=== PATIENT | female | born 1960 ===

== ENCOUNTER 2017-02-13 19:00 | Emergency (ER) | payer BC ==
[2017-02-13 19:09] VITALS: BP 186/91; PULSE 74; RESP 19; TEMP 98; O2SAT 100
[2017-02-13] MEDS ORDERED: Promethazine/Cod 6.25mg-10mg/5ml Syr UD PO STA (19:36)
[2017-02-13] MEDS ORDERED: Albuterol 0.083% Inhal Sol (2.5 mg/3 mL) UD INH STA (19:36)
--- NOTE | 2017-02-13 19:51 | ED PDOC ---
HPI: CCC, URI, Sore Throat Time Seen by Provider: 02/13/17 19:16 Chief Complaint (Nursing): Cough, Cold, Congestion Chief Complaint (Provider): Cough History Per: Patient History/Exam Limitations: no limitations Onset/Duration Of Symptoms: Days Current Symptoms Are (Timing): Still Present Additional Complaint(s): 57 year old female with a past medical history of hypertension who presents to the emergency department with a complaint a productive cough, congestion, chest tightness, feeling tired, and an upper sided back pain for a couple of days. Associated with shortness of breath only when she goes outside but does not have dyspnea at breath. Denies vomiting, diarrhea, body aches, chills, or fever. Of note, patient was seen at [facility] on 01/28/2017, diagnosed with pneumonia, and prescribed Levaquin 750 mg (antibiotics). Patient was discharged home and followed up with primary care doctor 2 days later on and prescribed a cough medication and nasal spray. Patient decided to visit our facility today, 02/13/2017, because she started to experience similar symptoms. Patient states she felt a lot better after finishing antibiotic trial. Chest x-ray and chest CT was completed at [facility] [place] which showed patient had pneumonia. Past Medical History Reviewed: Historical Data, Nursing Documentation, Vital Signs Vital Signs: Last Vital Signs Temp 98 F 02/13/17 19:03 Pulse 74 02/13/17 19:03 Resp 19 02/13/17 19:03 BP 186/91 H 02/13/17 19:03 Pulse Ox 100 02/13/17 21:10 - Medical History PMH: Back Problems (disc), HTN - Surgical History Other surgeries: hysterectomy - Family History Family History: States: Unknown Family Hx - Living Arrangements Living Arrangements: With Family () - Social History Current smoker - smoking cessation education provided: No Alcohol: None Drugs: Denies - Immunization History Hx Tetanus Toxoid Vaccination: No Hx Influenza Vaccination: No Hx Pneumococcal Vaccination: No - Home Medications Home Medications: Ambulatory Orders Medication Instructions Recorded Benicar 40 mg DAILY 02/04/14 Olmesartan/Hydrochlorothiazide 1 tab PO DAILY #30 tab 02/04/14 [Benicar Hct 25 mg-40 mg] Naproxen [Naprosyn] 375 mg PO TIDPC #20 tab 04/22/14 Aluminum Hydroxide/Magnesium H 20 ml PO Q4 #240 udc 08/09/14 [Maalox 30 ml] Ciprofloxacin HCl [Cipro] 500 mg PO BID #20 tab 01/03/15 Albuterol HFA [Ventolin HFA 90 2 puff IH [id number] #1 inh 02/13/17 mcg/actuation (8 g)] Azithromycin [Z-Jeremías] 250 mg PO ASDIR #6 tab 02/13/17 Promethazine/Codeine 5 ml PO Q6 PRN #100 ml 02/13/17 [Phenergan/Codeine Oral Syrup] - Allergies Allergies/Adverse Reactions: Allergies Allergy/AdvReac Type Severity Reaction Status Date / Time Penicillins Allergy RASH Verified 02/13/17 19:10 shrimp Allergy RASH Verified 02/13/17 19:10 Sulfa (Sulfonamide Allergy RASH Verified 02/13/17 19:10 Antibiotics) Review of Systems ROS Statement: Except As Marked, All Systems Reviewed And Found Negative (As per HPI, otherwise negative) Constitutional: Positive for: Other (Tired). Negative for: Fever (Body aches), Chills ENT: Positive for: Nose Congestion Cardiovascular: Positive for: Other (Chest tightness). Negative for: Chest Pain Respiratory: Positive for: Cough (productive), Shortness of Breath (only when she goes outside). Negative for: Other (no dyspnea at breath ) Gastrointestinal: Negative for: Vomiting, Diarrhea Musculoskeletal: Positive for: Back Pain (Left upper back pain) Physical Exam - Reviewed Nursing Documentation Reviewed: Yes Vital Signs Reviewed: Yes - Physical Exam Appears: Positive for: Non-toxic, No Acute Distress Head Exam: Positive for: ATRAUMATIC, NORMAL INSPECTION, NORMOCEPHALIC Skin: Positive for: Normal Color, Warm, Dry ENT: Positive for: Other (Mild erythema to the tonsils bilaterally). Negative for: Normal ENT Inspection, Tonsillar Exudate Cardiovascular/Chest: Positive for: Regular Rate, Rhythm. Negative for: Murmur Respiratory: Positive for: Normal Breath Sounds. Negative for: Accessory Muscle Use, Respiratory Distress Gastrointestinal/Abdominal: Positive for: Normal Exam, Soft. Negative for: Tenderness Neurologic/Psych: Positive for: Alert, Oriented (x3) - ECG O2 Sat by Pulse Oximetry: 100 (RA) Pulse Ox Interpretation: Normal - Progress Re-evaluation Time: 21:08 Condition: Re-examined, Improved Medical Decision Making Medical Decision Making: Time: 1934 Initial Impression: Acute bronchitis and upper respiratory infection (URI) differential include pneumonia and influenza Initial Plan: --EKG --Chest x-ray --Peak Flow Pre/Post TX --Albuterol 0.083% 2.5 mg INH --Influenza A B --Promethazine/Codeine 5 ml PO --Reevaluation EKG: Normal sinus rhythm at 74 bpm. Normal QRS. No ST changes. Time: 1948 --Negative for influenza A/B Time: 2107 Upon provider reevaluation patient is feeling better, is medically stable, and requires no further treatment in the ED at this time. Patient will be discharged home with Rx for Ventolin HFA 90 mcg, Z-jeremías 250 mg, and Phenergan/ Codeine Oral Syrup. Counseling was provided and all questions were answered regarding diagnosis and need for follow up with referred clinics. There is agreement to discharge plan. Return if symptoms persist or worsen. Clinical Impression: Bronchitis and pulmonary nodule Scribe~Attestation: Documented by Renetta Kapoor, acting as a scribe for Ibeth Lu MD. Provider Scribe~Attestation: All medical record entries made by the Scribe were at my direction and personally dictated by me. I have reviewed the chart and agree that the record accurately reflects my personal performance of the history, physical exam, medical decision making, and the department course for this patient. I have also personally directed, reviewed, and agree with the discharge instructions and disposition. Disposition - Clinical Impression Clinical Impression: Bronchitis, Pulmonary nodule - Patient ED Disposition Is Patient to be Admitted: No Doctor Will See Patient In The: Office Counseled Patient/Family Regarding: Studies Performed, Diagnosis, Need For Followup - Disposition Referrals: [facility] [Outside] Disposition: Routine/Home Disposition Time: 21:08 Condition: GOOD Additional Instructions: Follow up with your PCP in 2-3 days. Prescriptions: Albuterol HFA [Ventolin HFA 90 mcg/actuation (8 g)] 2 puff IH [id number] #1 inh Azithromycin [Z-Jeremías] 250 mg PO ASDIR #6 tab Promethazine/Codeine [Phenergan/Codeine Oral Syrup] 5 ml PO Q6 PRN #100 ml PRN Reason: Cough Instructions: Acute Bronchitis (ED), Pulmonary Nodules (ED)
--- NOTE | 2017-02-14 11:27 | RAD ---
HISTORY: cough chest congestion COMPARISON: No prior. TECHNIQUE: Chest PA and lateral FINDINGS: LUNGS: Patchy opacity upper right yamileth thorax, not evident in lateral projection. No infiltrate elsewhere. PLEURA: No significant pleural effusion identified. No pneumothorax apparent. CARDIOVASCULAR: Normal. OSSEOUS STRUCTURES: No significant abnormalities. VISUALIZED UPPER ABDOMEN: Normal. OTHER FINDINGS: None. IMPRESSION: Possible infiltrate upper right yamileth thorax. Otherwise unremarkable.
--- NOTE | 2017-02-14 11:44 | CARD ---
APPROVED REPORT EKG Measurement Heart [id number] <Conclusion> Normal sinus rhythm Normal ECG
== END 2017-02-13 21:35 | disposition home or self-care (01) ==
LOC: H.ER 19:00
DX: J20.9 Acute bronchitis, unspecified (principal); J18.9 Pneumonia, unspecified organism; R91.1 Solitary pulmonary nodule; I10 Essential (primary) hypertension; Z88.0 Allergy status to penicillin; Z90.710 Acquired absence of both cervix and uterus

== ENCOUNTER 2017-07-23 15:41 | Emergency (ER) | payer BC ==
[2017-07-23] MEDS ORDERED: Albuterol-Ipratrop 3 mg / 0.5 (3 ml) UD INH STA (16:20)
--- NOTE | 2017-07-23 16:23 | ED PDOC ---
HPI: SOB/CHF/COPD Time Seen by Provider: 07/23/17 16:21 Chief Complaint (Nursing): Shortness Of Breath Chief Complaint (Provider): sob/cough/back pain History Per: Patient (57 y/o female notes back pain upper since morning now associated with cough. Denies any fevers/chills. States she took tylenol with mild relief of symptoms. Denies any fevers/chills. Denies any h/o smoking/ asthma) Past Medical History Reviewed: Historical Data, Nursing Documentation, Vital Signs Vital Signs: Last Vital Signs Temp 98.6 F 07/23/17 15:55 Pulse 66 07/23/17 15:55 Resp 19 07/23/17 16:15 BP 163/95 H 07/23/17 15:55 Pulse Ox 98 07/23/17 16:23 - Medical History PMH: Back Problems (disc), HTN - Family History Family History: States: Unknown Family Hx - Immunization History Hx Tetanus Toxoid Vaccination: No Hx Influenza Vaccination: No Hx Pneumococcal Vaccination: No - Home Medications Home Medications: Ambulatory Orders Medication Instructions Recorded Benicar 40 mg DAILY 02/04/14 Olmesartan/Hydrochlorothiazide 1 tab PO DAILY #30 tab 02/04/14 [Benicar Hct 25 mg-40 mg] Naproxen [Naprosyn] 375 mg PO TIDPC #20 tab 04/22/14 Aluminum Hydroxide/Magnesium H 20 ml PO Q4 #240 udc 08/09/14 [Maalox 30 ml] Ciprofloxacin HCl [Cipro] 500 mg PO BID #20 tab 01/03/15 Albuterol HFA [Ventolin HFA 90 2 puff IH [id number] #1 inh 02/13/17 mcg/actuation (8 g)] Azithromycin [Z-Jeremías] 250 mg PO ASDIR #6 tab 02/13/17 Promethazine/Codeine 5 ml PO Q6 PRN #100 ml 02/13/17 [Phenergan/Codeine Oral Syrup] Naproxen 375 mg PO Q8 PRN #21 tablet 07/23/17 Promethazine/Codeine 5 ml PO Q12 PRN #100 ml 07/23/17 [Codeine/Promethazine 10 MG/5 Ml-6.25 MG/5 Ml] guaiFENesin [Robitussin] 20 ml PO Q6 PRN #400 ml 07/23/17 - Allergies Allergies/Adverse Reactions: Allergies Allergy/AdvReac Type Severity Reaction Status Date / Time Penicillins Allergy RASH Verified 02/13/17 19:10 shrimp Allergy RASH Verified 02/13/17 19:10 Sulfa (Sulfonamide Allergy RASH Verified 02/13/17 19:10 Antibiotics) Wells Criteria for PE - Wells Criteria for Pulmonary Embolism Clinical Signs and Symptoms of DVT: No P.E is #1 Diagnosis, or Equally Likely: No Heart Rate >100: No Immobilization at least 3 days;Surgery previous 4 weeks: No Previous, objectively diagnosed PE or DVT: No Hemoptysis: No Malignancy w/treatment within 6 months, or palliative: No Total Score: 0 Review of Systems ROS Statement: Except As Marked, All Systems Reviewed And Found Negative Physical Exam - Reviewed Nursing Documentation Reviewed: Yes Vital Signs Reviewed: Yes - Physical Exam Appears: Positive for: Well, Non-toxic, No Acute Distress Head Exam: Positive for: ATRAUMATIC, NORMAL INSPECTION, NORMOCEPHALIC Skin: Positive for: Normal Color, Warm, DRY Eye Exam: Positive for: EOMI, Normal appearance, PERRL ENT: Positive for: Normal ENT Inspection Neck: Positive for: Normal, Painless ROM Cardiovascular/Chest: Positive for: Regular Rate, Rhythm Respiratory: Positive for: CNT, Normal Breath Sounds Gastrointestinal/Abdominal: Positive for: Normal Exam, Soft Back: Positive for: Normal Inspection, Other (tenderness left subscapular region.) Extremity: Positive for: Normal ROM Neurologic/Psych: Positive for: Alert, Oriented - Laboratory Results Result Diagrams: 07/23/17 16:35 07/23/17 18:12 - ECG ECG Rhythm: Positive for: Sinus Rhythm (nsr 66 bpm; no ectopy no acute changes) O2 Sat by Pulse Oximetry: 98 - Progress ED Course And Treament: toradol 15 mg iv x 1 dose cxr: nad duoneb x 1 dose with minimal relief. Disposition - Clinical Impression Clinical Impression: Back pain, Cough - Patient ED Disposition Is Patient to be Admitted: No - Disposition Disposition: Routine/Home Disposition Time: 18:30 Condition: FAIR Prescriptions: guaiFENesin [Robitussin] 20 ml PO Q6 PRN #400 ml PRN Reason: Cough Naproxen 375 mg PO Q8 PRN #21 tablet PRN Reason: Pain, Moderate (4-7) Promethazine/Codeine [Codeine/Promethazine 10 MG/5 Ml-6.25 MG/5 Ml] 5 ml PO Q12 PRN #100 ml PRN Reason: Cough Instructions: Cough in Adults, Upper Back Pain Forms: [facility] (Cameroonian)
[2017-07-23 17:26] LABS: BASO # 0.1 K/uL (0.0-0.2); BASO % 0.9 % (0.0-2.0); EOS # 0.2 K/uL (0.0-0.7); EOS % 3.5 % (0.0-4.0); HEMOGLOBIN 11.5 g/dL (12.0-16.0); LYMPH # 2.3 K/uL (1.0-4.3); LYMPH % 34.4 % (20.0-40.0); MEAN CELL VOLUME 80.5 fl (81.0-99.0); MEAN CORPUSCULAR HEMOGLOBIN 26.6 pg (27.0-31.0); MEAN PLATELET VOLUME 8.5 fl (7.2-11.7); MONO # 0.8 K/uL (0.0-0.8); MONO % 11.7 % (0.0-10.0); NEUT # 3.2 K/uL (1.8-7.0); NEUT % 49.5 % (50.0-75.0); NRBC % 0.1 % (0.0-0.0); RBC 4.32 Mil/uL (3.80-5.20); RED CELL DISTRIBUTION WIDTH 15.8 % (11.5-14.5); WHITE BLOOD COUNT 6.6 K/uL (4.8-10.8)
[2017-07-23 18:04] LABS: B-TYPE NATRIURETIC PEPTIDE 73.5 pg/ml (0-900)
[2017-07-23 18:21] LABS: BLOOD UREA NITROGEN 10 mg/dl (7-17); CALCIUM 9.6 mg/dL (8.4-10.2); GFR AFRICAN-AMERICAN > 60; GFR NON-AFRICAN AMERICAN > 60
--- NOTE | 2017-07-23 18:43 | RAD ---
HISTORY: COMPARISON: 02/13/2017. TECHNIQUE: Chest PA and lateral FINDINGS: LINES AND TUBES: None. LUNG AND PLEURA: The lungs are well inflated and clear. No focal consolidation. HEART AND MEDIASTINUM: The heart is not enlarged. The hilar and mediastinal contours are within normal limits. SKELETAL STRUCTURES: The bony structures are within normal limits for the patient's age. VISUALIZED UPPER ABDOMEN: Normal. OTHER FINDINGS: None. IMPRESSION: No active pulmonary disease.
[2017-07-23 19:02] VITALS: O2SAT 100
[2017-07-23 20:06] VITALS: BP 155/78; PULSE 74; RESP 16; TEMP 98.4
--- NOTE | 2017-07-24 16:22 | CARD ---
APPROVED REPORT EKG Measurement Heart [id number] <Conclusion> Normal sinus rhythm Nonspecific T wave abnormality Abnormal ECG
== END 2017-07-23 19:30 | disposition home or self-care (01) ==
LOC: H.ER 15:41
DX: R05 Cough (principal); M54.9 Dorsalgia, unspecified; I10 Essential (primary) hypertension; Z88.0 Allergy status to penicillin
CPT/HCPCS: 71046; 80048; 83880; 84484; 85025; 85378; 93005; 94640; 96374; 99283; J1885

== ENCOUNTER 2018-05-17 19:24 | Emergency (ER) | payer BC ==
[2018-05-17 19:24] VITALS: BMI 29.8
[2018-05-17 20:19] VITALS: RESP 18
[2018-05-17] MEDS ORDERED: Lidocaine 2% GEL TOP STA (20:47)
[2018-05-17] MEDS ORDERED: Lidocaine 5% Patch TD STA (20:50)
--- NOTE | 2018-05-17 20:59 | ED PDOC ---
HPI: Back Time Seen by Provider: 05/17/18 20:40 Chief Complaint (Nursing): Back Pain Chief Complaint (Provider): Right back pain History Per: Patient History/Exam Limitations: no limitations Onset/Duration Of Symptoms: Days Current Symptoms Are (Timing): Still Present Quality Of Discomfort: "Pain" Severity: Moderate Exacerbating Factor(s): Turning, Movement, Sitting Additional History Per: Patient Additional Complaint(s): 58yo female, otherwise well, comes to ER reporting right sided back pain, which now radiates to her anterior chest, right under her ribs. Patient states she initially "pulled a muscle" a couple months ago after shoveling snow, and was evaluated by her PMD who told her to take OTC Advil. She reports minimal relief with Advil and states she is concerned as the pain is worsening and radiating to the front. She states it is worse with movement, turning, sitting or attempting to stand up. She denies any chest pain, shortness of breath, weakness, numbness or other complaints. No leg swelling or calf pain. Denies recent travel, surgery or immobilization. PMD: Osmani Will Past Medical History Reviewed: Historical Data, Nursing Documentation, Vital Signs Vital Signs: Last Vital Signs Temp 98.3 F 05/17/18 20:17 Pulse 79 05/17/18 20:17 Resp 18 05/17/18 20:17 BP 183/84 H 05/17/18 20:17 Pulse Ox 99 05/17/18 20:17 - Medical History PMH: Back Problems (disc), HTN - Surgical History Surgical History: Denies: Pacemaker - Family History Family History: States: Unknown Family Hx - Immunization History Hx Tetanus Toxoid Vaccination: No Hx Influenza Vaccination: No Hx Pneumococcal Vaccination: No - Home Medications Home Medications: Ambulatory Orders Medication Instructions Recorded Argyle-3 Fatty Acids/Fish Oil [Fish 1 each PO DAILY 01/13/18 Oil 1,000 mg Softgel] Chlorthalidone [Hygroton] 12.5 mg PO MWF #30 tab 01/18/18 Erdarbi 40 mg PO DAILY 01/18/18 Albuterol Sulfate [Ventolin Hfa] 1 puff IH Q6 PRN #1 dose 05/18/18 Azithromycin 250 mg PO DAILY #6 tablet 05/18/18 Cyclobenzaprine [Cyclobenzaprine 10 mg PO TID PRN #12 tab 05/18/18 HCl] Lidocaine 5% [Lidoderm] 1 ea TD DAILY #10 patch 05/18/18 Methylprednisolone [Medrol Dose 4 mg PO DAILY #21 mg 05/18/18 Pack (21 tabs)] - Allergies Allergies/Adverse Reactions: Allergies Allergy/AdvReac Type Severity Reaction Status Date / Time Penicillins Allergy RASH Verified 05/17/18 20:17 shrimp Allergy RASH Verified 05/17/18 20:17 Sulfa (Sulfonamide Allergy RASH Verified 05/17/18 20:17 Antibiotics) Review of Systems ROS Statement: Except As Marked, All Systems Reviewed And Found Negative Cardiovascular: Negative for: Chest Pain Respiratory: Negative for: Shortness of Breath Musculoskeletal: Positive for: Back Pain (right sided, radiating to anterior chest) Neurological: Negative for: Weakness, Numbness Physical Exam - Reviewed Nursing Documentation Reviewed: Yes Vital Signs Reviewed: Yes - Physical Exam Comments: GENERAL APPEARANCE: Patient is awake, alert, oriented x 3, in no acute distress. SKIN: Warm, dry; (-) cyanosis. EYES: (-) conjunctival pallor. ENMT: Mucous membranes moist. NECK: (-) tenderness, (-) stiffness, (-) lymphadenopathy. CHEST AND RESPIRATORY: (+) tenderness to right lateral ribs to right anterior ribs (rib 8-10). (-) rales, (-) rhonchi, (-) wheezes; breath sounds equal bilaterally. HEART AND CARDIOVASCULAR: (-) irregularity; (-) murmur, (-) gallop. ABDOMEN AND GI: Soft; (-) tenderness; (-) palpable mass. BACK: (-) direct bony tenderness, (-) deformity. Straight leg raising (-) bilaterally. EXTREMITIES: (-) deformity. no leg swelling or calf tenderness, Distal pulses good bilaterally. NEURO AND PSYCH: Mental status as above. Intact sensation bilaterally; normal strength in extension of the knees, plantar and dorsiflexion of the toes. DTRs symmetric. - Laboratory Results Result Diagrams: 05/17/18 22:11 05/17/18 22:11 - ECG O2 Sat by Pulse Oximetry: 99 (RA) Pulse Ox Interpretation: Normal Medical Decision Making Medical Decision Making: Musculoskeletal pain Plan: -- XR Ribs -- Toradol 30mg IM -- Lidocaine patch -- Flexeril 10mg PO 2145 CXR as read by me shows no fracture, no pneumothorax Repeat exam with normal lung sounds, no wheeze, rales and rhonchi Due to severity and length of pain, CT Chest ordered to r/o fracture. 0017 CT Chest With IV Contrast FINDINGS: LUNGS: There is some bronchiectasis in the right upper lobe. In the vicinity of the areas of bronchiectasis, there are some small air space opacities which may represent early infiltrates or chronic airspace disease. There are a few small air space opacities in left upper lobe and left apex as well. There is mild dependent atelectasis in the bases. PLEURAL SPACES: No large consolidation, pleural effusion or pneumothorax is identified. HEART: The heart is mildly enlarged. LYMPH NODES: No lymphadenopathy is evident. BONES: No focal osseous abnormality or acute fracture. UPPER ABDOMEN: The upper abdominal solid organs are unremarkable. MISCELLANEOUS: There is tortuous thoracic aorta. IMPRESSION: 1. The heart is mildly enlarged. 2. There is some bronchiectasis in the right upper lobe. In the vicinity of the areas of bronchiectasis, there are some small air space opacities which may represent early infiltrates or chronic airspace disease. There are a few small air space opacities in left upper lobe and left apex as well. 3. There is mild dependent atelectasis in the bases. 4. No large consolidation, pleural effusion or pneumothorax is identified. 5. There is tortuous thoracic aorta. 6. No rib fractures are identified, as clinically questioned. 0020 re arben pt is feeling much better, she does report having an on and off cough, but tries not to due the pain, she also reports being worked up by her PMD for COPD and given breathing treatments but never given a diagnosis possible infiltrates notes - will treat with azithromycin discussed results, diagnosis, treatment, return precautions and f/u with pt who is understanding, in agreement and stable for dc Scribe Attestation: Documented by Ana Garcia, acting as a scribe for VENICE Luevano. Provider Scribe Attestation: All medical record entries made by the Scribe were at my direction and personally dictated by me. I have reviewed the chart and agree that the record accurately reflects my personal performance of the history, physical exam, medical decision making, and the department course for this patient. I have also personally directed, reviewed, and agree with the discharge instructions and disposition. Disposition - Clinical Impression Clinical Impression: Bronchiectasis, Strain of muscle and tendon of front wall of thorax, initial encounter - Patient ED Disposition Is Patient to be Admitted: No Counseled Patient/Family Regarding: Studies Performed, Diagnosis, Need For Followup, Rx Given - Disposition Referrals: Osmani Will MD [Medical Doctor] - Disposition: Routine/Home Disposition Time: 00:25 Condition: IMPROVED Additional Instructions: Return to ED for new or worsening symptoms, fever >100.4, chest pain, difficulty breathing, changes in skin color. Follow up with your primary doctor in 1-2 days. Take medications as prescribed. Do not drive or drink alcohol when taking flexeril Prescriptions: Albuterol Sulfate [Ventolin Hfa] 1 puff IH Q6 PRN #1 dose PRN Reason: Wheezing Azithromycin 250 mg PO DAILY #6 tablet Cyclobenzaprine [Cyclobenzaprine HCl] 10 mg PO TID PRN #12 tab PRN Reason: Muscle Spasm Lidocaine 5% [Lidoderm] 1 ea TD DAILY #10 patch Methylprednisolone [Medrol Dose Pack (21 tabs)] 4 mg PO DAILY #21 mg Instructions: Muscle Strain, Bronchiectasis in Adults Forms: [email or web address] (Romansh), [facility] ED School/Work Excuse Print Language: KUWAITI - POA Present On Arrival: None
[2018-05-17 22:15] LABS: HEMOGLOBIN 11.6 g/dL (12.0-16.0); MEAN CELL VOLUME 81.8 fl (81.0-99.0); MEAN CORPUSCULAR HEMOGLOBIN 26.6 pg (27.0-31.0); MEAN CORPUSCULAR HGB CONC 32.5 g/dL (33.0-37.0); RBC 4.34 Mil/uL (3.80-5.20); RED CELL DISTRIBUTION WIDTH 15.2 % (11.5-14.5); WHITE BLOOD COUNT 5.6 K/uL (4.8-10.8)
[2018-05-17 22:30] LABS: BLOOD UREA NITROGEN 18 mg/dl (7-17); CALCIUM 9.8 mg/dL (8.4-10.2); GFR NON-AFRICAN AMERICAN > 60
[2018-05-17] MEDS ORDERED: Iohexol 300 100 ML IJ ONE (23:23)
[2018-05-17] MEDS ORDERED: Sodium Chloride 0.9% 50 ML IV ONE (23:23)
[2018-05-18 00:56] VITALS: BP 184/99; PULSE 67; TEMP 98.1
--- NOTE | 2018-05-18 08:59 | RAD ---
Date of service: 05/17/2018 PROCEDURE: Radiographs of the Chest and Right Ribs. HISTORY: rib pain COMPARISON: Chest radiographs 07/23/2017. TECHNIQUE: Frontal radiograph of the chest and multiple oblique radiographs of the right ribs were obtained. 4 views obtained. FINDINGS: RIGHT RIBS: No fracture or focal lesion visualized. LUNGS: No acute infiltrate identified bilaterally. PLEURA: No pneumothorax or pleural fluid. CARDIOVASCULAR: Normal cardiac size. No pulmonary vascular congestion. No aortic atherosclerotic calcification present OTHER FINDINGS: None. IMPRESSION: Unremarkable radiographs of the chest and right ribs. No right rib fracture.
--- NOTE | 2018-05-18 11:07 | CT ---
Date of service: 05/17/2018 PROCEDURE: CT Chest with contrast HISTORY: rib fractures COMPARISON: Plain radiographs from 05/17/2018 TECHNIQUE: Contiguous axial images were obtained through the chest with intravenous contrast enhancement. Sagittal and coronal reconstructions were performed. IV contrast: 9 mL Omnipaque 300 Radiation dose: Total exam DLP = 340.15 mGy-cm. This CT exam was performed using one or more of the following dose reduction techniques: Automated exposure control, adjustment of the mA and/or kV according to patient size, and/or use of iterative reconstruction technique. FINDINGS: LUNGS: The lungs are well inflated. There is mild bronchiectasis with patchy ground-glass airspace disease in the right upper lobe and to a lesser extent in the middle lobe. There is also minimal bronchiectasis in the left submental there is minimal patchy airspace disease. There is minimal dependent atelectasis in the lung bases. There is no focal consolidation or mass. There are no endobronchial lesions. MEDIASTINUM: Unremarkable thoracic aorta. No aneurysm or dissection. Normal sized heart. Main pulmonary artery unremarkable. No vascular congestion. No lymphadenopathy. No aortic atherosclerotic calcification or mural plaque present. PLEURA: No pleural fluid. No pneumothorax. BONES: No acute fracture. No destructive lesion. UPPER ABDOMEN: Grossly unremarkable. OTHER FINDINGS: None. IMPRESSION: 1. Mild right upper lobe bronchiectasis and minimal left upper lobe bronchiectasis with associated patchy airspace disease which may represent nonspecific infection/inflammation or chronic changes/fibrosis. 2. No evidence for acute rib fracture. A preliminary report was provided by [employer].
[2018-05-18 12:41] VITALS: O2SAT 99
== END 2018-05-18 00:56 | disposition home or self-care (01) ==
LOC: H.ER 19:24
DX: J47.9 Bronchiectasis, uncomplicated (principal); S29.011A Strain of muscle and tendon of front wall of thorax, initial encounter; X50.9XXA Other and unspecified overexertion or strenuous movements or postures, initial encounter; Y92.89 Other specified places as the place of occurrence of the external cause; I10 Essential (primary) hypertension; Z88.0 Allergy status to penicillin; Z88.2 Allergy status to sulfonamides
CPT/HCPCS: 71101; 71260; 80048; 85027; 96372; 99284; J1885; Q9967